=== PATIENT | female | born 1935 | race Caucasian/White ===

== ENCOUNTER 2016-11-09 16:17 | Emergency (ER) | payer MEDICARE ==
[2016-11-09 16:18] VITALS: BMI 30.2
[2016-11-09 16:27] VITALS: PULSE 85; RESP 18; TEMP 98; O2SAT 100
--- NOTE | 2016-11-09 16:38 | C.PDOC ---
History Of Present Illness A 81 y/o female presents to the ER c/o foreign body sensation that she believes is a splinter to the right index finger for 4 days. Patient notes the area is tender but denies fever, chills, discharge, or any other complaints. Time Seen by Provider: 11/09/16 16:29 Chief Complaint (Nursing): Upper Extremity Problem/Injury History Per: Patient History/Exam Limitations: no limitations Onset/Duration Of Symptoms: Days Current Symptoms Are (Timing): Still Present Quality: Other (Foreign body sensation) Severity: Mild Recent travel outside of the [place]: No Additional History Per: Patient Past Medical History Reviewed: Historical Data, Nursing Documentation, Vital Signs Vital Signs: Last Vital Signs Temp 98 F 11/09/16 16:24 Pulse 85 11/09/16 16:24 Resp 18 11/09/16 16:24 BP 182/76 H 11/09/16 17:25 Pulse Ox 100 11/09/16 18:35 - Medical History PMH: Diabetes, HTN, Hypothyroidism Surgical History: CABG - [facility] Procedures TETANUS TOXOID ADMINIST (05/07/14) Family History: States: Unknown Family Hx - Social History Hx Tobacco Use: No Hx Alcohol Use: No Hx Substance Use: No - Immunization History Hx Tetanus Toxoid Vaccination: No Hx Influenza Vaccination: Yes Hx Pneumococcal Vaccination: No Review Of Systems Except As Marked, All Systems Reviewed And Found Negative. Constitutional: Negative for: Fever, Chills Skin: Positive for: Other (Foreign body sensation to the right index finger, Tender. No Discharge noted) Physical Exam - Physical Exam Appears: Non-toxic, No Acute Distress Skin: Warm, Dry Head: Atraumatic, Normacephalic Eye(s): bilateral: Normal Inspection, EOMI Extremity: Normal ROM, Capillary Refill (<2secs), No Deformity, Other ( Thickened skin to the right second digit DIP) Pulses: Left Radial: Normal, Right Radial: Normal Neurological/Psych: Oriented x3, Normal Speech, Normal Motor, Normal Sensation ED Course And Treatment O2 Sat by Pulse Oximetry: 100 (RA) Pulse Ox Interpretation: Normal Medical Decision Making Medical Decision Making: Impression: 81 y/o c/o foreign body sensation of the right index finger for 4 days Plans: -X-RAY right index finger Xray shows no foreign body Using lidocaine 1%, anesthesia achieved via digital block. Superficial wound exploration, no foreign body found. Will treat with Keflex. Advise patient to keep area clean and dry. Patient was instructed to follow up with physician/ clinic in 1-2 days for further evaluation. Disposition Counseled Patient/Family Regarding: Diagnosis, Need For Followup, Rx Given - Disposition Disposition: HOME/ ROUTINE Disposition Time: 17:06 Condition: GOOD Additional Instructions: Take antibiotic twice daily follow up with primary physician in 2-3 days for wound check Prescriptions: Cephalexin [cephalexin] 500 mg PO Q12 #10 cap Instructions: Soft Tissue Foreign Body (ED) - POA Present On Arrival: None - Clinical Impression Clinical Impression: No foreign body found on evaluation - Scribe Statement The provider has reviewed the documentation as recorded by the Scribe Tate allen All medical record entries made by the Christopheribe were at my direction and personally dictated by me. I have reviewed the chart and agree that the record accurately reflects my personal performance of the history, physical exam, medical decision making, and the department course for this patient. I have also personally directed, reviewed, and agree with the discharge instructions and disposition.na
[2016-11-09] MEDS ORDERED: Bacitracin 500 Units/gm Oint Foilpak UD ONE (17:11)
[2016-11-09 17:25] VITALS: BP 182/76
--- NOTE | 2016-11-09 18:07 | RAD ---
Right hand 2nd digit History: Evaluate for foreign body. Comparison: None available. Findings: Prominent soft tissue swelling at the level of the right 2nd digit. No evidence of radiopaque foreign body. Narrowing at the 2nd through 5th PIP and DIP joint spaces. Punctate ossific density seen at the radial base of the 4th middle phalanx which may represent small avulsion injury versus accessory ossicle. Clinical correlation. Foreshortening of the 4th and 5th metacarpal bones, nonspecific. Cortical irregularity and productive change at the level of the proximal and distal aspects of the 5th metacarpal bone which may be related to chronic osseous injury. Subluxation noted at the 1st MCP joint space with peripheral erosions and cortical productive change. Prominent degenerative changes noted within the wrist at the level of the carpal bones. Pseudoarthrosis of several carpal bones with articular surface flattening. Narrowing of the radiocarpal joint space. Loss of height of several carpal bones most prominent in the proximal row likely degenerative change and or are secondary to arthritic disease. Articular surface remodeling of the distal radius and ulna. Impression: No evidence of discrete radiopaque foreign body. Prominent soft tissue swelling at the level of the 2nd digit. Prominent degenerative and arthritic changes. Punctate ossific density seen at radial base of the 2nd middle phalanx which may represent loose body and or chronic avulsion injury. Additional findings as above. If pain persists, consider further evaluation with MRI.
== END 2016-11-09 17:25 | disposition home or self-care (01) ==
LOC: C.ER 16:17
DX: Z00.00 Encounter for general adult medical examination without abnormal findings (principal)

== ENCOUNTER 2017-09-14 10:22 | Inpatient (IN) | payer MEDICARE ==
[2017-09-14 10:22] VITALS: BMI 30.2
[2017-09-14] MEDS ORDERED: Sodium Chloride 0.9% 500 ML IV ONE ×2 (11:00→11:11)
[2017-09-14 11:09] LABS: BASO # 0.1 K/uL (0.0-0.2); EOS # 0.1 K/uL (0.0-0.7); MEAN PLATELET VOLUME 10.9 fL (7.2-11.7)
--- NOTE | 2017-09-14 11:15 | C.PDOC ---
History Of Present Illness 82 year old female presents to the emergency room accompanied by her family experiencing a slow gait. Family reports that for the past three days, patient is falling to the ground, has a poor diet, a dry and unproductive cough. Family also reports that her has recently been hospitalized for pneumonia. Time Seen by Provider: 09/14/17 10:43 Chief Complaint (Nursing): Medical Clearance History Per: Patient, Family History/Exam Limitations: no limitations Onset/Duration Of Symptoms: Days (3) Past Medical History Reviewed: Historical Data, Nursing Documentation, Vital Signs Vital Signs: Last Vital Signs Temp 98.1 F 09/14/17 10:26 Pulse 84 09/14/17 11:51 Resp 24 09/14/17 11:51 BP 104/45 L 09/14/17 11:51 Pulse Ox 100 09/14/17 12:52 - Medical History PMH: Diabetes, HTN, Hypothyroidism Surgical History: CABG - [facility] Procedures TETANUS TOXOID ADMINIST (05/07/14) Family History: States: No Known Family Hx - Social History Hx Tobacco Use: No Hx Alcohol Use: No Hx Substance Use: No - Immunization History Hx Tetanus Toxoid Vaccination: No Hx Influenza Vaccination: Yes Hx Pneumococcal Vaccination: No Review Of Systems Except As Marked, All Systems Reviewed And Found Negative. Respiratory: Positive for: Cough (dry and unproductive) Gastrointestinal: Positive for: Other (poor diet) Physical Exam - Physical Exam Appears: Well, Non-toxic Skin: Warm Head: Atraumatic, Normacephalic Eye(s): bilateral: Normal Inspection Ear(s): Bilateral: Normal Nose: Normal Oral Mucosa: Moist Tongue: Normal Appearing Neck: Normal Chest: Symmetrical Cardiovascular: Rhythm Regular Respiratory: Normal Breath Sounds Gastrointestinal/Abdominal: Normal Exam Back: Normal Inspection Neurological/Psych: Oriented x3, Normal Speech, Normal Cognition Gait: Other (slow gait, not magnetic, not widespaced.) ED Course And Treatment - Laboratory Results Result Diagrams: 09/14/17 11:05 09/14/17 11:05 Lab Interpretation: Abnormal ECG: Interpreted By Me, Viewed By Me ECG Rhythm: Sinus Rhythm (92, no prior history to compare ECG), L BBB ECG Interpretation: Abnormal O2 Sat by Pulse Oximetry: 100 (RA) Pulse Ox Interpretation: Normal - Radiology CXR: Interpreted by Me CXR Interpretation: Yes: No Acute Disease Reevaluation Time: 12:53 Reassessment Condition: Improved - Physician Consult Information Outcome Of Conversation: 1230: d/w Dr. Navarro ok to admit. Medical Decision Making Medical Decision Making: Plan: * Head CT W/O Contrast * ECG * BNP * Troponin * CBC * CXR * IV Medications Impressions: CXR: No acute findings Head CT: No acute intracranial abnormality. Specifically, no evidence for acute intracranial hemorrhage. Mild global parenchymal volume loss with frontal predominance. Mild cerebellar volume loss. gait apraxia, ? related to brain volume loss, dementia, or developing Alzheimers consider MRI brain and Neuro eval for baseline. Disposition Doctor Will See Patient In The: Hospital Counseled Patient/Family Regarding: Studies Performed, Diagnosis - Disposition Disposition: HOSPITALIZED Disposition Time: 12:55 Condition: GOOD Forms: [facility] (Guinean) - Clinical Impression Clinical Impression: Gait apraxia of elderly - Scribe Statement The provider has reviewed the documentation as recorded by the Ambrocio Strongqvi Provider Attestation: All medical record entries made by the Ambrocio were at my direction and personally dictated by me. I have reviewed the chart and agree that the record accurately reflects my personal performance of the history, physical exam, medical decision making, and the department course for this patient. I have also personally directed, reviewed, and agree with the discharge instructions and disposition.
[2017-09-14 11:20] LABS: ALB/GLOB RATIO 0.9 (1.0-2.1); ALBUMIN 4.2 g/dL (3.5-5.0)
[2017-09-14 11:23] LABS: EOS % 1.3 % (0.0-4.0); HEMOGLOBIN 12.3 g/dL (11.0-16.0); LYMPH # 1.3 K/uL (1.0-4.3); LYMPH % 20.8 % (20.0-40.0); MEAN CELL VOLUME 83.3 fL (81.0-99.0); MEAN CORPUSCULAR HEMOGLOBIN 26.9 pg (27.0-31.0); MEAN CORPUSCULAR HGB CONC 32.3 g/dL (33.0-37.0); MONO # 0.8 K/uL (0.0-0.8); NEUT # 4.1 K/uL (1.8-7.0); NEUT % 63.9 % (50.0-75.0); NRBC % 0.5 % (0.0-2.0); RBC 4.58 Mil/uL (3.80-5.20); RED CELL DISTRIBUTION WIDTH 16.8 % (11.5-14.5); WHITE BLOOD COUNT 6.5 K/uL (4.8-10.8)
--- NOTE | 2017-09-14 11:27 | RAD ---
PROCEDURE: CHEST RADIOGRAPH, 1 VIEW HISTORY: Shortness of breath COMPARISON: 05/07/2014. FINDINGS: LUNGS: The lungs are well inflated and clear. No focal consolidation. There is a small calcified granuloma in the right upper lobe. PLEURA: No pneumothorax or pleural fluid seen. CARDIOVASCULAR: The heart is normal in size. Status post CABG. OSSEOUS STRUCTURES: No significant abnormalities. VISUALIZED UPPER ABDOMEN: Normal. OTHER FINDINGS: None. IMPRESSION: No acute findings.
[2017-09-14 11:32] LABS: TROPONIN I 0.045 ng/mL (0.00-0.120)
[2017-09-14 11:56] LABS: SQUAMOUS EPITHIAL 2 /hpf (0-5); URINE BILIRUBIN NEGATIVE (NEGATIVE); URINE BLOOD NEGATIVE (NEGATIVE); URINE CLARITY Hazy (Clear); URINE COLOR Yellow (YELLOW); URINE GLUCOSE (UA) NORMAL (Normal); URINE LEUKOCYTE ESTERASE NEG Leu/uL (Negative); URINE PROTEIN 1+ mg/dL (NEGATIVE); URINE UROBILINOGEN NORMAL mg/dL (0.2-1.0)
--- NOTE | 2017-09-14 11:56 | CT ---
PROCEDURE: CT HEAD WITHOUT CONTRAST. HISTORY: freq falls, ataxia, ? SDH COMPARISON: 05/07/2014. TECHNIQUE: Axial computed tomography images were obtained through the head/brain without intravenous contrast. Radiation dose: Total exam DLP = 664.87 mGy-cm. This CT exam was performed using one or more of the following dose reduction techniques: Automated exposure control, adjustment of the mA and/or kV according to patient size, and/or use of iterative reconstruction technique. FINDINGS: HEMORRHAGE: No intracranial hemorrhage. BRAIN: Sanderson-white matter differentiation is preserved. There is no mass, mass effect or abnormal extra-axial fluid collection.There are coarse atherosclerotic calcifications in the cavernous carotid arteries. VENTRICLES: There is mild age-related global parenchymal volume loss and proportionate enlargement of the ventricles and cortical sulci with frontal predominance. There is also mild cerebellar volume loss. CALVARIUM: The skull base and calvarium are normal. PARANASAL SINUSES: Predominantly clear. MASTOID AIR CELLS: Predominantly clear. OTHER FINDINGS: None. IMPRESSION: No acute intracranial abnormality. Specifically, no evidence for acute intracranial hemorrhage. Mild global parenchymal volume loss with frontal predominance. Mild cerebellar volume loss.
[2017-09-14] MEDS: Promethazine 12.5 mg/10 ml Syrup PO PRN (22:02)
[2017-09-14] MEDS: (Novolog) Insulin Aspart, Recombinant 100 u/ml 10 ml vial SC SCH (22:03)
[2017-09-15] MEDS: Levothyroxine 112 MCG TAB PO SCH (07:34)
[2017-09-15 07:42] LABS: BASO # 0.1 K/uL (0.0-0.2); BASO % 2.3 % (0.0-2.0); EOS % 0.6 % (0.0-4.0); HEMOGLOBIN 12.1 g/dL (11.0-16.0); LYMPH # 1.4 K/uL (1.0-4.3); LYMPH % 25.7 % (20.0-40.0); MEAN CELL VOLUME 82.2 fL (81.0-99.0); MEAN CORPUSCULAR HEMOGLOBIN 27.1 pg (27.0-31.0); MONO # 0.6 K/uL (0.0-0.8); MONO % 11.9 % (0.0-10.0); NEUT # 3.2 K/uL (1.8-7.0); NEUT % 59.5 % (50.0-75.0); NRBC % 0.4 % (0.0-2.0); RBC 4.45 Mil/uL (3.80-5.20); RED CELL DISTRIBUTION WIDTH 16.5 % (11.5-14.5); WHITE BLOOD COUNT 5.4 K/uL (4.8-10.8)
[2017-09-15 07:54] LABS: CALCIUM 8.3 mg/dl (8.6-10.4)
[2017-09-15] MEDS: (Novolog) Insulin Aspart, Recombinant 100 u/ml 10 ml vial SC SCH ×4 (08:44→21:43)
[2017-09-15] MEDS ORDERED: Enoxaparin 40 mg Syringe SC SCH (10:00)
[2017-09-15] MEDS: Promethazine 12.5 mg/10 ml Syrup PO PRN ×2 (11:34→21:29)
--- NOTE | 2017-09-15 13:53 | CON ---
DATE: 09/15/2017 NEUROLOGY CONSULTATION CHIEF COMPLAINT: Unsteady gait. HISTORY OF PRESENT ILLNESS: This is an 82-year-old woman with history of type 2 diabetes mellitus, hypertension, hypothyroidism, who has been having slowness of gait over the past few days. Fallen to the ground. Had poor diet, poor p.o. intake, and a nonproductive dry cough. Her CAT scan of the head showed no intracranial abnormalities. Currently, she does have features of diabetic peripheral neuropathy. On examination, she is very deconditioned. Her chest x-ray was cleared. She did have elevated BNP of 10,700 and features of dehydration and electrolyte derangements, also with low systolic blood pressure of 103/53 initially. PAST MEDICAL HISTORY: History of hypertension, hypothyroidism, and type 2 diabetes mellitus. PAST SURGICAL HISTORY: History of CABG. FAMILY HISTORY: Noncontributory. ALLERGIES: NO KNOWN DRUG ALLERGIES. REVIEW OF SYSTEMS: A 14-point review of system is negative except as in the HPI. SOCIAL HISTORY: No illicit drug use, smoking, or EtOH abuse. PHYSICAL EXAMINATION: VITAL SIGNS: Temperature 99.6, pulse rate 96, blood pressure 145/80, respiratory rate 20, oxygen saturation 96% on room air. GENERAL: The patient is sitting up in bed, in no acute distress. HEENT: Atraumatic and normocephalic. PERRLA. Extraocular muscles intact. NECK: Supple. No JVD. No adenopathy noted. LUNGS: Clear to auscultation. No adventitious sounds. HEART: S1 and S2, normal rate and rhythm. No murmurs, rubs, or gallops. ABDOMEN: Soft, nontender, and nondistended. Bowel sounds are present. EXTREMITIES: No clubbing. No cyanosis. Peripheral pulses are 2+ bilaterally. NEUROLOGIC: The patient is alert and oriented to person, place, month, and year. Speech is fluent without any errors. Cranial nerves II through XII are intact. Motor exam: Moves all extremities equally. Toes are downgoing bilaterally. Sensory exam: Diffuse light touch, pinprick, up to calves bilaterally, decreased vibration of the toes. DTRs are 2+ throughout, 1 at both knees and ankles. Coordination: [id number] intact. No dysmetria. Gait is deferred for now. LABORATORY DATA: Sodium is 134, potassium is 4.5, chloride 94, carbon dioxide 22, creatinine 1.3, and random glucose 155. ASSESSMENT AND PLAN: This is an 82-year-old female with history of hypothyroidism, type 2 diabetes mellitus, hypertension, has unsteady gait and frequent falls. Unsteady gait is likely secondary to diabetic peripheral neuropathy, sensory motor type, superimposed underlying deconditioned state. Her head CT showed no intracranial abnormalities and she does have elevated ____, which shows some form of congestion from cardiac standpoint. At this time, she did have evidence of change in cerebral hypoperfusion to the brain due to her initial low systolic and diastolic blood pressures. I recommends at this time, 1. Orthostatic vital signs. 2. Physical Therapy/Occupational Therapy for deconditioning and diabetic peripheral neuropathy to assess gait. 3. Monitor electrolytes and correct accordingly with adequate hydration. 4. Aspirin 81 mg for stroke prevention and continue to keep blood pressures above systolic 120 to 130 and diastolic 70 to 80. Once again, thank you for this consult. Anil Ahn MD
--- NOTE | 2017-09-15 18:42 | CP.PCM.HP ---
Past Patient History - Infectious Disease Hx of Infectious Diseases: None - Past Social History Smoking Status: Never Smoked - CARDIAC Hx Hypertension: Yes - ENDOCRINE/METABOLIC Hx Hypothyroidism: Yes - MUSCULOSKELETAL/RHEUMATOLOGICAL Hx Falls: Yes - PSYCHIATRIC Hx Substance Use: No - SURGICAL HISTORY Hx Coronary Artery Bypass Graft: Yes - ANESTHESIA Hx Anesthesia: Yes Hx Anesthesia Reactions: No Hx Malignant Hyperthermia: No Meds Allergies/Adverse Reactions: Allergies Allergy/AdvReac Type Severity Reaction Status Date / Time No Known Allergies Allergy Verified 09/14/17 10:29 Results - Vital Signs Recent Vital Signs: Last Vital Signs Temp 98.5 F 09/15/17 15:15 Pulse 79 09/15/17 15:15 Resp 20 09/15/17 15:15 BP 101/61 09/15/17 15:15 Pulse Ox 97 09/15/17 15:15 - Labs Result Diagrams: 09/15/17 07:24 09/15/17 07:24 Labs: Laboratory Results - last 24 hr 09/14/17 09/15/17 09/15/17 21:24 07:12 07:24 WBC 5.4 RBC 4.45 Hgb 12.1 Hct 36.6 MCV 82.2 MCH 27.1 MCHC 33.0 RDW 16.5 H Plt Count 103 L MPV 11.0 Neut % (Auto) 59.5 Lymph % (Auto) 25.7 [place] % (Auto) 11.9 H Eos % (Auto) 0.6 Baso % (Auto) 2.3 H Neut # (Auto) 3.2 Lymph # (Auto) 1.4 [place] # (Auto) 0.6 Eos # (Auto) 0.0 Baso # (Auto) 0.1 Differential Comment Sodium Potassium Chloride Carbon Dioxide Anion Gap BUN Creatinine Est GFR ( Amer) Est GFR (Non-Af Amer) POC Glucose (mg/dL) 203 H 151 H Random Glucose Calcium Total Bilirubin AST ALT Alkaline Phosphatase Total Protein Albumin Globulin Albumin/Globulin Ratio 09/15/17 09/15/17 07:24 11:12 WBC RBC Hgb Hct MCV MCH MCHC RDW Plt Count MPV Neut % (Auto) Lymph % (Auto) [place] % (Auto) Eos % (Auto) Baso % (Auto) Neut # (Auto) Lymph # (Auto) [place] # (Auto) Eos # (Auto) Baso # (Auto) Differential Comment Sodium 134 Potassium 4.5 Chloride 94 L Carbon Dioxide 22 Anion Gap 22 H BUN 21 H Creatinine 1.3 H Est GFR ( Amer) 47 Est GFR (Non-Af Amer) 39 POC Glucose (mg/dL) 172 H Random Glucose 155 H Calcium 8.3 L Total Bilirubin 0.8 AST 35 ALT 20 Alkaline Phosphatase 32 L Total Protein 8.2 Albumin 4.0 Globulin 4.2 H Albumin/Globulin Ratio 1.0
--- NOTE | 2017-09-15 23:31 | CARD ---
APPROVED REPORT EKG Measurement Heart [id number] <Conclusion> Normal sinus rhythm Left bundle branch block Abnormal ECG
[2017-09-16] MEDS: Levothyroxine 112 MCG TAB PO SCH (05:33)
[2017-09-16] MEDS: (Novolog) Insulin Aspart, Recombinant 100 u/ml 10 ml vial SC SCH ×4 (08:00→22:10)
[2017-09-16] MEDS: Promethazine 12.5 mg/10 ml Syrup PO PRN ×2 (09:51→16:13)
[2017-09-16] MEDS: Enoxaparin 30 mg Syringe SC SCH (11:06)
[2017-09-16] MEDS ORDERED: Albuterol-Ipratrop 3 mg / 0.5 (3 ml) UD INH STA (15:53)
--- NOTE | 2017-09-16 19:08 | CP.PCM.PN ---
Subjective - Date & Time of Evaluation Date of Evaluation: 09/16/17 Time of Evaluation: 19:08 Objective - Vital Signs/Intake and Output Vital Signs (last 24 hours): Temp Pulse Resp BP Pulse Ox 97.7 F 96 H 21 124/72 99 09/16/17 15:00 09/16/17 17:50 09/16/17 15:00 09/16/17 15:00 09/16/17 15:00 Intake and Output: 09/16/17 09/17/17 18:59 06:59 Intake Total 700 Balance 700 - Medications Medications: Current Medications Albuterol/Ipratropium (Duoneb 3 Mg/0.5 Mg (3 Ml) Ud) 3 ml INH RQ6 [facility] Amlodipine Besylate (Norvasc) 2.5 mg PO DAILY [facility] Last Admin: 09/16/17 09:40 Dose: 2.5 mg Aspirin (Ecotrin) 81 mg PO DAILY [facility] Last Admin: 09/16/17 09:40 Dose: 81 mg Enoxaparin Sodium (Lovenox) 30 mg SC DAILY [facility] Last Admin: 09/16/17 11:06 Dose: 30 mg Insulin Aspart (Novolog) 0 unit SC [facility] PRN Reason: Protocol Last Admin: 09/16/17 17:00 Dose: 2 unit Levothyroxine Sodium (Synthroid) 112 mcg PO DAILY@0630 [facility] Last Admin: 09/16/17 05:33 Dose: 112 mcg Losartan Potassium (Cozaar) 50 mg PO DAILY [facility] Last Admin: 09/16/17 09:39 Dose: 50 mg Metformin HCl (Glucophage) 500 mg PO BID [facility] Last Admin: 09/16/17 17:41 Dose: 500 mg Nortriptyline HCl (Pamelor) 100 mg PO QPM [facility] Last Admin: 09/16/17 17:41 Dose: 100 mg Pneumococcal Polyvalent Vaccine (Pneumovax 23 Vaccine) 0.5 ml IM .ONCE ONE Stop: 09/17/17 10:01 Promethazine HCl (Phenergan Syrup) 12.5 mg PO Q6 PRN PRN Reason: Cough Last Admin: 09/16/17 16:13 Dose: 12.5 mg Rosuvastatin Calcium (Crestor) 10 mg PO HS [facility] Last Admin: 09/15/17 21:26 Dose: 10 mg Zolpidem Tartrate (Ambien) 5 mg PO HS [facility] Last Admin: 09/15/17 21:26 Dose: 5 mg - Labs Labs: 09/15/17 07:24 09/15/17 07:24
[2017-09-16] MEDS: Albuterol-Ipratrop 3 mg / 0.5 (3 ml) UD INH SCH (19:29)
[2017-09-16 23:59] VITALS: RESP 20; O2SAT 98
[2017-09-17] MEDS: Albuterol-Ipratrop 3 mg / 0.5 (3 ml) UD INH SCH ×3 (00:59→13:22)
[2017-09-17] MEDS: Promethazine 12.5 mg/10 ml Syrup PO PRN ×2 (04:49→10:44)
[2017-09-17] MEDS: Levothyroxine 112 MCG TAB PO SCH (06:03)
[2017-09-17] MEDS: (Novolog) Insulin Aspart, Recombinant 100 u/ml 10 ml vial SC SCH ×2 (07:51→12:12)
[2017-09-17 07:53] VITALS: BP 100/61; PULSE 90
[2017-09-17] MEDS ORDERED: Pneumococcal 23-Valent Vaccine IM ONE (10:00)
[2017-09-17] MEDS: Enoxaparin 30 mg Syringe SC SCH (10:43)
--- NOTE | 2017-09-17 17:15 | CP.PCM.PN ---
Subjective - Date & Time of Evaluation Date of Evaluation: 09/17/17 Time of Evaluation: 11:00 - Subjective Subjective: Alert, awake, follows commands, no acute distress. Objective - Vital Signs/Intake and Output Vital Signs (last 24 hours): Temp Pulse Resp BP Pulse Ox 98 F 90 20 100/61 98 09/17/17 15:00 09/17/17 15:11 09/17/17 15:00 09/17/17 15:11 09/17/17 15:11 Intake and Output: 09/17/17 09/17/17 06:59 18:59 Intake Total 1050 Balance 1050 - Labs Labs: 09/15/17 07:24 09/15/17 07:24 Assessment and Plan - Assessment and Plan (Free Text) Assessment: 82 year old female admitted with frequent falls and unsteady gait, seen and examined. Alert, awake, denies sob or chest pain. Needs assistance with ambulation. Discussed with DR Tang, plan to discharge to the [facility] today. No acute distress noted.
[2017-09-18 11:16] VITALS: TEMP 98
--- NOTE | 2017-09-18 19:04 | CP.PCM.DIS ---
Provider - Provider Date of Admission: 09/14/17 12:51 Attending physician: Bindu Tang MD [facility] Course - Lab Results Lab Results: Most Recent Lab Values WBC 5.4 K/uL (4.8-10.8) 09/15/17 07:24 RBC 4.45 Mil/uL (3.80-5.20) 09/15/17 07:24 Hgb 12.1 g/dL (11.0-16.0) 09/15/17 07:24 Hct 36.6 % (34.0-47.0) 09/15/17 07:24 MCV 82.2 fL (81.0-99.0) 09/15/17 07:24 MCH 27.1 pg (27.0-31.0) 09/15/17 07:24 MCHC 33.0 g/dL (33.0-37.0) 09/15/17 07:24 RDW 16.5 % (11.5-14.5) H 09/15/17 07:24 Plt Count 103 K/uL (130-400) L 09/15/17 07:24 MPV 11.0 fL (7.2-11.7) 09/15/17 07:24 Neut % (Auto) 59.5 % (50.0-75.0) 09/15/17 07:24 Lymph % (Auto) 25.7 % (20.0-40.0) 09/15/17 07:24 [place] % (Auto) 11.9 % (0.0-10.0) H 09/15/17 07:24 Eos % (Auto) 0.6 % (0.0-4.0) 09/15/17 07:24 Baso % (Auto) 2.3 % (0.0-2.0) H 09/15/17 07:24 Neut # (Auto) 3.2 K/uL (1.8-7.0) 09/15/17 07:24 Lymph # (Auto) 1.4 K/uL (1.0-4.3) 09/15/17 07:24 [place] # (Auto) 0.6 K/uL (0.0-0.8) 09/15/17 07:24 Eos # (Auto) 0.0 K/uL (0.0-0.7) 09/15/17 07:24 Baso # (Auto) 0.1 K/uL (0.0-0.2) 09/15/17 07:24 Differential Comment 09/15/17 07:24 Sodium 134 mmol/L (132-148) 09/15/17 07:24 Potassium 4.5 mmol/L (3.6-5.2) 09/15/17 07:24 Chloride 94 mmol/L (98-107) L 09/15/17 07:24 Carbon Dioxide 22 mmol/L (22-30) 09/15/17 07:24 Anion Gap 22 (10-20) H 09/15/17 07:24 BUN 21 mg/dL (7-17) H 09/15/17 07:24 Creatinine 1.3 mg/dL (0.7-1.2) H 09/15/17 07:24 Est GFR ( Amer) 47 09/15/17 07:24 Est GFR (Non-Af Amer) 39 09/15/17 07:24 POC Glucose (mg/dL) 162 mg/dL (65-110) H 09/17/17 16:30 Random Glucose 155 mg/dL (65-105) H 09/15/17 07:24 Calcium 8.3 mg/dl (8.6-10.4) L 09/15/17 07:24 Total Bilirubin 0.8 mg/dL (0.2-1.3) 09/15/17 07:24 AST 35 U/L (14-36) 09/15/17 07:24 ALT 20 U/L (9-52) 09/15/17 07:24 Alkaline Phosphatase 32 U/L (38-126) L 09/15/17 07:24 Troponin I 0.0450 ng/mL (0.00-0.120) 09/14/17 11:05 NT-Pro-B Natriuret Pep 29977 pg/mL (0-900) H 09/14/17 11:05 Total Protein 8.2 g/dL (6.3-8.3) 09/15/17 07:24 Albumin 4.0 g/dL (3.5-5.0) 09/15/17 07:24 Globulin 4.2 gm/dL (2.2-3.9) H 09/15/17 07:24 Albumin/Globulin Ratio 1.0 (1.0-2.1) 09/15/17 07:24 Urine Color Yellow (YELLOW) 09/14/17 11:20 Urine Clarity Hazy (Clear) 09/14/17 11:20 Urine pH 6.0 (5.0-8.0) 09/14/17 11:20 Ur Specific [place] 1.013 (1.003-1.030) 09/14/17 11:20 Urine Protein 1+ mg/dL (NEGATIVE) H 09/14/17 11:20 Urine Glucose (UA) Normal mg/dL (Normal) 09/14/17 11:20 Urine Ketones Negative mg/dL (NEGATIVE) 09/14/17 11:20 Urine Blood Negative (NEGATIVE) 09/14/17 11:20 Urine Nitrate Negative (NEGATIVE) 09/14/17 11:20 Urine Bilirubin Negative (NEGATIVE) 09/14/17 11:20 Urine Urobilinogen Normal mg/dL (0.2-1.0) 09/14/17 11:20 Ur Leukocyte Esterase Neg [place]/uL (Negative) 09/14/17 11:20 Urine WBC (Auto) < 1 /hpf (0-5) 09/14/17 11:20 Ur Squamous Epith Cells 2 /hpf (0-5) 09/14/17 11:20 Hyaline Casts 3-5 /lpf (0-2) H 09/14/17 11:20 Discharge Plan - Follow Up Plan Condition: GOOD Disposition: REHAB FACILITY/REHAB UNIT Instructions: Apraxia (DC) Referrals: Bindu Tang MD [Staff Provider] -
== END 2017-09-17 16:55 | DRG 74 ==
LOC: C.ER 10:22 → C.9E 12:51 → C.3T 15:17
PROVIDERS: ADMIT Internal Medicine Critical Care Medicine; ATTEND Internal Medicine Critical Care Medicine
DX: E11.42 Type 2 diabetes mellitus with diabetic polyneuropathy (principal); E86.0 Dehydration; I10 Essential (primary) hypertension; R29.6 Repeated falls; Z95.1 Presence of aortocoronary bypass graft; E03.9 Hypothyroidism, unspecified; R27.0 Ataxia, unspecified